=== PATIENT | female | born 1975 | race American Indian/Alaskan Native ===

== ENCOUNTER 2018-02-13 08:48 | Day surgery (SDC) | payer OTHER ==
[2018-02-13 11:03] LABS: Blood Urea Nitrogen 7 mg/dL (7-17)
[2018-02-13] MEDS ORDERED: NITROSTAT SL ONE (11:51)
[2018-02-13] MEDS ORDERED: BENADRYL IV ONE (12:00)
[2018-02-13] MEDS ORDERED: LOPRESSOR IV ONE ×3 (12:06→12:42)
[2018-02-13] MEDS ORDERED: ATROPINE 0.1% (CARDIAC) ONE (12:06)
[2018-02-13 12:50] VITALS: BP 115/66
--- NOTE | 2018-02-13 14:03 | Cat Scan Report ---
LIMITED CT OF THE CHEST PER CT CORONARY ANGIOGRAPHY PROTOCOL: Limited CT of the chest per CT coronary angiography protocol is submitted. The cardiac portion of the exam has been previously interpreted by the [employer]. The included portions of the lungs appear clear without evidence for nodule, mass or infiltrate. The included pleural spaces are clear. No mediastinal or hilar adenopathy is evident. Included upper abdomen and solid abdominal organs are grossly within normal limits. IMPRESSION: Unremarkable limited CT of the chest as noted.
--- NOTE | 2018-02-18 09:57 | Procedure Note ---
CARDIAC CT REFERRING PHYSICIAN: Dr. Felipe. INDICATION FOR THE PROCEDURE: Dilated aortic root, shortness of breath. DESCRIPTION OF PROCEDURE: The patient received 0.4 mg of nitroglycerin sublingual for coronary vasodilation prior to scanning. Using [address], low dose noncontrast calcium scoring CT was performed with prospective gating followed by contrast enhanced CTA at 0.6 mm thickness with retrospective gating and 100 mL Isovue 370 IV. The scan was performed from the rajani through the base of the heart. Data was reconstructed using multiple cardiac phases. FINDINGS: The overall quality of the scan is poor limited by the following artifact. 1. Motion artifact caused by cardiac motion secondary to poor heart rate control. 2. Motion artifact caused by respiratory motion secondary to the patient being unable to hold her breath during scan. 3. Poor contrast opacification due to inappropriate bolus timing. 4. The total calcium score is zero indicating the absence of calcified atherosclerotic plaque and a very low cardiovascular disease risk. 5. The coronary circulation is not well visualized due to poor contrast bolus timing. 6. The ascending aorta is dilated measuring 39 x 35.8 mm. The descending aorta measures 20.3 x 21.8 mm. 7. The aortic valve is trileaflet. 8. The pulmonary artery is dilated. The main pulmonary artery maximal diameter is 38 mm. 9. The pulmonary veins are noted entering the left atrium. 10. The atrial appendage was no filling defect. 11 The left ventricle is normal in size with evidence of normal systolic function. 12. No pericardial effusion is identified. 13. The radiology overread of extracardiac structures. No abnormality detected. IMPRESSION: Poor quality scan limited by the following artifact. 1. Motion artifact caused by cardiac motion secondary to poor heart rate control. 2. Motion artifact caused by respiratory motion due to the patient unable to hold her breath during scan. 3. Poor contrast bolus timing and incomplete coronary opacification. 4. Zero calcium score indicating the absence of calcified atherosclerotic plaque and a very low cardiovascular disease risk. 5. Incomplete opacification of the coronary arteries. The coronary circulation is uninterpretable. 6. The ascending aorta is dilated measuring 39 mm in maximal diameter. 7. There is evidence of a dilatation of the pulmonary artery with the main pulmonary artery measuring 38 mm in maximal diameter. RECOMMENDATION: Clinical correlation is recommended. JOB# [id number] LETTY/RAMBO
== END 2018-02-13 13:03 | disposition home or self-care (01) ==
LOC: CATHLABREC 08:48 → EDSTATUS 09:45 → CATHLABREC 13:03
PROVIDERS: ATTEND Internal Medicine
DX: I77.819 Aortic ectasia, unspecified site (principal)
CPT/HCPCS: 36415; 75574; 82565; 84520; 96374; J1200; Q9967; J0461

== ENCOUNTER 2018-07-08 14:23 | Outpatient (CLI) | payer OTHER ==
--- NOTE | 2018-07-08 23:06 | XRay Report ---
FINAL REPORT PROCEDURE: XR SPINE LUMBOSACRAL 4+V TECHNIQUE: Lumbar spine radiographs, including AP, lateral, oblique, and lumbosacral spot views. HISTORY: PAIN COMPARISON: No prior studies are available for comparison. FINDINGS: Alignment: Normal. Vertebral body heights/Disk spaces: Normal. Fracture(s): None. Facets: Normal. Bone mineralization: Normal. IMPRESSION: Normal Examination.
--- NOTE | 2018-07-09 10:52 | XRay Report ---
BILATERAL SHOULDERS, 3 VIEWS History: Pain. Findings: There is normal bone mineralization. No evidence for fracture, dislocation or ligamentous injury. No significant degenerative changes are identified. The soft tissues are unremarkable. Impression: Bilateral shoulders within normal limits.
== END 2018-07-08 14:24 | disposition home or self-care (01) ==
LOC: XRAY 14:23
PROVIDERS: ATTEND Orthopaedic Surgery
DX: M54.5 Low back pain (principal); M75.41 Impingement syndrome of right shoulder; M25.512 Pain in left shoulder; Z91.041 Radiographic dye allergy status
CPT/HCPCS: 72110